=== PATIENT | male | born 1935 | race Caucasian/White ===

== ENCOUNTER → 2016-05-17 | Outpatient (CLI) | payer MEDICARE ==
[~2016-05-17] MED LIST: LEVO.125 PO; NEXI40CA PO
[2016-05-17 09:28] LABS: HEMATOCRIT 40.8 % (39.0-51.0); MEAN CELL VOLUME 83.6 FL (80.0-100.0); MEAN CORPUSCULAR HEMOGLOBIN 27.9 PG (27.0-34.0); MEAN CORPUSCULAR HGB CONC 33.4 % (32.0-36.0); PLATELET COUNT 239 TH/MM3 (150-450); RED BLOOD COUNT 4.87 MIL/MM3 (4.50-5.90); RED CELL DISTRIBUTION WIDTH 14.1 % (11.6-17.2); REVIEW FLAG FINAL; WHITE BLOOD COUNT 4.8 TH/MM3 (4.0-11.0)
[2016-05-17 11:36] LABS: ALKALINE PHOSPHATASE 144 U/L (45-117); ALT (GPT) 38 U/L (12-78); ANION GAP 11 MEQ/L (5-15); AST (GOT) 32 U/L (15-37); BICARBONATE 22.7 MEQ/L (21.0-32.0); BLOOD UREA NITROGEN 23 MG/DL (7-18); CHLORIDE 107 MEQ/L (98-107); FREE T4 0.95 NG/DL (0.76-1.46); GLOMERULAR FILTRATION RATE 51 ML/MIN (>89); GLUCOSE,FASTING 86 MG/DL (74-99); HDL CHOLESTEROL 61.2 MG/DL (40.0-60.0); LDL CHOLESTEROL 54 MG/DL (0-99); LDL CHOLESTEROL DIRECT 73 MG/DL (0-99); POTASSIUM 4.1 MEQ/L (3.5-5.1); SODIUM (NA) 141 MEQ/L (136-145); TOTAL BILIRUBIN ADULT 1.5 MG/DL (0.2-1.0)
== END ==
LOC: PLAB 07:11
PROVIDERS: ATTEND Family Medicine
DX: K21.9 Gastro-esophageal reflux disease without esophagitis (principal); I10 Essential (primary) hypertension; E03.8 Other specified hypothyroidism
CPT/HCPCS: 36415; 80053; 80061; 83721; 84439; 84443; 85027

== ENCOUNTER → 2016-08-10 | Outpatient (CLI) | payer MEDICARE ==
[2016-08-10 13:26] LABS: HEMATOCRIT 38.8 % (39.0-51.0); MEAN CELL VOLUME 84.1 FL (80.0-100.0); MEAN CORPUSCULAR HEMOGLOBIN 28.2 PG (27.0-34.0); MEAN CORPUSCULAR HGB CONC 33.6 % (32.0-36.0); PLATELET COUNT 208 TH/MM3 (150-450); RED BLOOD COUNT 4.62 MIL/MM3 (4.50-5.90); RED CELL DISTRIBUTION WIDTH 14.4 % (11.6-17.2); REVIEW FLAG FINAL; WHITE BLOOD COUNT 4.1 TH/MM3 (4.0-11.0)
[2016-08-10 13:49] LABS: ANION GAP 5 MEQ/L (5-15); AST (GOT) 41 U/L (15-37); BICARBONATE 28.3 MEQ/L (21.0-32.0); BLOOD UREA NITROGEN 28 MG/DL (7-18); CHLORIDE 110 MEQ/L (98-107); GLOMERULAR FILTRATION RATE 58 ML/MIN (>89); GLUCOSE,FASTING 80 MG/DL (74-99); SODIUM (NA) 143 MEQ/L (136-145)
[2016-08-10 14:18] LABS: ALKALINE PHOSPHATASE 147 U/L (45-117); ALT (GPT) 62 U/L (12-78); FREE T4 0.97 NG/DL (0.76-1.46); HDL CHOLESTEROL 49.9 MG/DL (40.0-60.0); LDL CHOLESTEROL 51 MG/DL (0-99); LDL CHOLESTEROL DIRECT 69 MG/DL (0-99)
== END ==
LOC: PLAB 08:33
PROVIDERS: ATTEND Family Medicine
DX: E78.2 Mixed hyperlipidemia (principal); E03.8 Other specified hypothyroidism; I67.9 Cerebrovascular disease, unspecified
CPT/HCPCS: 36415; 80053; 80061; 82607; 83721; 84439; 84443; 85027

== ENCOUNTER → 2016-11-09 | Outpatient (CLI) | payer MEDICARE ==
[2016-11-09 09:15] LABS: HEMATOCRIT 39.9 % (39.0-51.0); MEAN CELL VOLUME 85.1 FL (80.0-100.0); MEAN CORPUSCULAR HGB CONC 34.1 % (32.0-36.0); PLATELET COUNT 207 TH/MM3 (150-450); RED BLOOD COUNT 4.69 MIL/MM3 (4.50-5.90); RED CELL DISTRIBUTION WIDTH 14.5 % (11.6-17.2); REVIEW FLAG FINAL; WHITE BLOOD COUNT 4.6 TH/MM3 (4.0-11.0)
[2016-11-09 09:49] LABS: CHLORIDE 108 MEQ/L (98-107); POTASSIUM 4.2 MEQ/L (3.5-5.1); SODIUM (NA) 141 MEQ/L (136-145)
[2016-11-09 09:51] LABS: AST (GOT) 33 U/L (15-37); BLOOD UREA NITROGEN 25 MG/DL (7-18); GLOMERULAR FILTRATION RATE 56 ML/MIN (>89); GLUCOSE,FASTING 91 MG/DL (74-99)
[2016-11-09 10:14] LABS: ALKALINE PHOSPHATASE 154 U/L (45-117); ALT (GPT) 47 U/L (12-78); ANION GAP 7 MEQ/L (5-15); BICARBONATE 26.5 MEQ/L (21.0-32.0); FREE T4 0.99 NG/DL (0.76-1.46); HDL CHOLESTEROL 53.5 MG/DL (40.0-60.0); LDL CHOLESTEROL 37 MG/DL (0-99); LDL CHOLESTEROL DIRECT 45 MG/DL (0-99); TOTAL BILIRUBIN ADULT 1.5 MG/DL (0.2-1.0)
== END ==
LOC: PLAB 07:07
PROVIDERS: ATTEND Family Medicine
DX: E78.2 Mixed hyperlipidemia (principal); E03.8 Other specified hypothyroidism; E53.8 Deficiency of other specified B group vitamins; I67.9 Cerebrovascular disease, unspecified
CPT/HCPCS: 36415; 80053; 80061; 82607; 83721; 84439; 84443; 85027

== ENCOUNTER 2017-01-09 06:19 | Inpatient (IN) | payer MEDICARE ==
[~2017-01-09] VITALS: Ht 182.9 cm; Wt 98.0 kg
[2017-01-09] VITALS (9 sets, daily range): BP systolic 112–146; BP diastolic 62–82; PULSE 58–85; RESP 16–20; TEMP 97.9–98.4; O2SAT 96–98
[2017-01-09] MEDS ORDERED: ASPIRIN 81 MG CHEW TAB PO ONE (06:45)
[2017-01-09] MEDS ORDERED: SODIUM CHLORIDE 0.9% FLUSH 10 ML FLUSH IVF PRN (06:45)
[2017-01-09] MEDS ORDERED: SODIUM CHLORID 0.9% 500 ML INJ 500 ML IV ONE (06:45)
--- NOTE | 2017-01-09 06:49 | PD ---
HPI Chief Complaint: Dizziness Time Seen by Provider: 06:34 Travel History International Travel<30 days: No Contact w/Intl Traveler<30days: No Traveled to known affect area: No History of Present Illness HPI Thin 81-year-old man who presents to the emergency department complaining of chest pain, diaphoresis, and right sided numbness. States he was feeling well when he went to bed last night he woke up with dull pain and pressure in his chest. He also had diaphoresis and sweating. All with this he had numbness in the right arm. He still has some numbness in the right arm and right face now. No weakness. Chest pressure is abated. He states he had similar symptoms about a year or so ago but he did not see a doctor at that time. History Past Medical History Narrative Medical Hypothyroidism. Social History Alcohol Use: No Tobacco Use: No Allergies-Medications (Allergen,Severity, Reaction): Coded Allergies: No Known Allergies (Verified , 01/09/17) Reported Meds & Prescriptions Reported Meds & Active Scripts Active Reported Lipitor (Atorvastatin Calcium) 20 Mg Tab 20 Mg PO HS Aspirin 81 Mg Chew 162 Mg CHEW DAILY Zantac (Ranitidine HCl) 300 Mg Tab 300 Mg PO DAILY Levothyroxine (Levothyroxine Sodium) 125 Mcg Tab 125 Mcg PO DAILY Review of Systems Except as stated in HPI: all other systems reviewed are Neg Physical Exam Narrative GENERAL: Well-appearing 81-year-old, no acute distress. SKIN: Focused skin assessment warm/dry. HEAD: Atraumatic. Normocephalic. EYES: Pupils equal and round. No scleral icterus. No injection or drainage. ENT: No nasal bleeding or discharge. Mucous membranes pink and moist. NECK: Trachea midline. No JVD. CARDIOVASCULAR: Regular rate and rhythm. No murmur appreciated. RESPIRATORY: No accessory muscle use. Clear to auscultation. Breath sounds equal bilaterally. GASTROINTESTINAL: Abdomen soft, non-tender, nondistended. Hepatic and splenic margins not palpable. MUSCULOSKELETAL: No obvious deformities. No clubbing. No cyanosis. No edema. NEUROLOGICAL: Awake and alert. No obvious cranial nerve deficits. Motor grossly within normal limits. Normal speech. PSYCHIATRIC: Appropriate mood and affect; insight and judgment normal. Data Data Last Documented VS Vital Signs Date Time Temp Pulse Resp B/P (MAP) Pulse Ox O2 Delivery O2 Flow Rate FiO2 01/09/17 06:42 96 Room Air 01/09/17 06:42 72 18 132/82 (99) 01/09/17 06:21 97.9 Orders Orders Electrocardiogram (01/09/17 06:40) Ckmb (Isoenzyme) Profile (01/09/17 06:40) Complete Blood Count With Diff (01/09/17 06:40) Comprehensive Metabolic Panel (01/09/17 06:40) Magnesium (Mg) (01/09/17 06:40) Prothrombin Time / Inr (Pt) (01/09/17 06:40) Act Partial Throm Time (Ptt) (01/09/17 06:40) Troponin I (01/09/17 06:40) Chest, Single Ap (01/09/17 06:40) Ecg Monitoring (01/09/17 06:40) Bilateral Bp Monitoring (01/09/17 06:40) Iv Access Insert/Monitor (01/09/17 06:40) Oximetry (01/09/17 06:40) Oxygen Administration (01/09/17 06:40) Aspirin Chew (Aspirin Chew) (01/09/17 06:45) Sodium Chloride 0.9% Flush (Ns Flush) (01/09/17 06:45) Sodium Chlorid 0.9% 500 Ml Inj (Ns 500 M (01/09/17 06:45) Ct Brain W/O Iv Contrast(Rout) (01/09/17 ) Labs Laboratory Tests Test 01/09/17 06:45 White Blood Count 5.1 TH/MM3 Red Blood Count 4.88 MIL/MM3 Hemoglobin 13.9 GM/DL Hematocrit 42.0 % Mean Corpuscular Volume 86.2 FL Mean Corpuscular Hemoglobin 28.5 PG Mean Corpuscular Hemoglobin Concent 33.1 % Red Cell Distribution Width 14.3 % Platelet Count 214 TH/MM3 Mean Platelet Volume 8.7 FL Neutrophils (%) (Auto) 54.8 % Lymphocytes (%) (Auto) 33.4 % Monocytes (%) (Auto) 9.1 % Eosinophils (%) (Auto) 2.2 % Basophils (%) (Auto) 0.5 % Neutrophils # (Auto) 2.8 TH/MM3 Lymphocytes # (Auto) 1.7 TH/MM3 Monocytes # (Auto) 0.5 TH/MM3 Eosinophils # (Auto) 0.1 TH/MM3 Basophils # (Auto) 0.0 TH/MM3 CBC Comment DIFF FINAL Differential Comment MDM Medical Decision Making Medical Screen Exam Complete: Yes Emergency Medical Condition: Yes Interpretation(s) My review of EKG: Sinus rhythm at a rate of 68, leftward axis, normal intervals , no acute ischemia. Differential Diagnosis ACS, ischemia, bleed, stroke, anxiety, other Narrative Course Medical decision making INITIAL: 81-year-old man presents to the emergency department complaining of chest pain, diaphoresis, right-sided illness. Looks well. Neurologic exam is completely unremarkable with exception of some subjective sensory changes right V2 and right arm. Doubt neurologic cause. Suspicious for myocardial ischemia. Check labs, EKG, labs, reassess. Chavez Barrera MD Jan 09, 2017 06:49
[2017-01-09] MEDS ORDERED: ZANT300T PO (06:53)
[2017-01-09] MEDS ORDERED: LEVO125T4 PO (06:53)
[2017-01-09] MEDS ORDERED: ASPI81CH CHEW (06:53)
[2017-01-09] MEDS ORDERED: LIPI20TA PO (06:53)
[2017-01-09 06:56] LABS: AUTOMATED NEUTROPHIL # 2.8 TH/MM3 (1.8-7.7); BASOPHIL % 0.5 % (0.0-2.0); EOSINOPHIL # 0.1 TH/MM3 (0-0.4); EOSINOPHIL % 2.2 % (0.0-4.0); HEMO FLAGS DIFF FINAL; LYMPH % 33.4 % (9.0-44.0); LYMPHOCYTE # 1.7 TH/MM3 (1.0-4.8); MEAN CELL VOLUME 86.2 FL (80.0-100.0); MEAN CORPUSCULAR HEMOGLOBIN 28.5 PG (27.0-34.0); MEAN CORPUSCULAR HGB CONC 33.1 % (32.0-36.0); MONO % 9.1 % (0.0-8.0); NEUT % 54.8 % (16.0-70.0); PLATELET COUNT 214 TH/MM3 (150-450); RED BLOOD COUNT 4.88 MIL/MM3 (4.50-5.90); RED CELL DISTRIBUTION WIDTH 14.3 % (11.6-17.2); WHITE BLOOD COUNT 5.1 TH/MM3 (4.0-11.0)
--- NOTE | 2017-01-09 07:00 | RADRPT ---
EXAM DATE/TIME: 01/09/2017 06:50 [facility] COMPARISON: No previous studies available for comparison. INDICATIONS : Dizziness and right arm numbness. RADIATION DOSE: 37.05 CTDIvol (mGy) MEDICAL HISTORY : Gastroesophageal reflux disease. Carcinoma, prostate. SURGICAL HISTORY : Prostatectomy. Thyroid surgery. ENCOUNTER: Initial ACUITY: 1 day PAIN SCALE: 0/10 LOCATION: cranial TECHNIQUE: Multiple contiguous axial images were obtained of the head. Using automated exposure control and adj ustment of the mA and/or kV according to patient size, radiation dose was kept as low as reasonably a chievable to obtain optimal diagnostic quality images. DIC[facility]. FINDINGS: CEREBRUM: The ventricles are normal for age. Punctate spontaneously dense area in the right condon radiata is o vertly benign. Punctate old lacunar type infarct in the left thalamus.. No extra-axial fluid collect ions are seen. POSTERIOR FOSSA: The cerebellum and brainstem are intact. The 4th ventricle is midline. The cerebellopontine angle i s unremarkable. EXTRACRANIAL: The visualized portion of the orbits is intact. Expansile soft tissue lesion in the right maxillary a ntrum calcification. Mild mucoperiosteal thickening in the left sphenoid sinus SKULL: The calvaria is intact. No evidence of skull fracture. CONCLUSION: 1. 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 Benign-appearing sub-centim eters calcification in the right condon radiata. 2. Expansile lesion in the right maxillary antrum with calcification. While this may represent chroni c sinusitis with a fungal component, a mass lesion cannot be excluded. Outpatient MRI with contrast c ould be performed for further characterization. Kameron Lu MD on January 09, 2017 at 6:54 Board Certified Radiologist. This report was verified electronically.
--- NOTE | 2017-01-09 07:02 | RADRPT ---
EXAM DATE/TIME: 01/09/2017 06:44 [facility] COMPARISON: No previous studies available for comparison. INDICATIONS : Chest pain. MEDICAL HISTORY : None. SURGICAL HISTORY : None. ENCOUNTER: Initial ACUITY: 1 day PAIN SCORE: 0/10 LOCATION: Bilateral chest FINDINGS: The heart size is normal. There is minimal suspected linear atelectasis at the medial left lung base. Right lung is clear. No effusion is seen. CONCLUSION: Suspected minimal atelectasis. Tae Lutz MD on January 09, 2017 at 6:58 Board Certified Radiologist. This report was verified electronically.
[2017-01-09 07:13] LABS: ALT (GPT) 39 U/L (12-78); ANION GAP 5 MEQ/L (5-15); AST (GOT) 26 U/L (15-37); BICARBONATE 27.7 MEQ/L (21.0-32.0); BLOOD UREA NITROGEN 24 MG/DL (7-18); CHLORIDE 106 MEQ/L (98-107); GLOMERULAR FILTRATION RATE 57 ML/MIN (>89); MAGNESIUM 2.3 MG/DL (1.5-2.5); POTASSIUM 3.9 MEQ/L (3.5-5.1); SODIUM (NA) 139 MEQ/L (136-145)
[2017-01-09 07:17] LABS: ALKALINE PHOSPHATASE 146 U/L (45-117); CREATINE KINASE 101 U/L (39-308); TOTAL BILIRUBIN ADULT 1.7 MG/DL (0.2-1.0)
[2017-01-09 07:26] LABS: APTT (PATIENT) 25.3 SEC (24.3-30.1); PROTHROMBIN TIME - PATIENT 10.5 SEC (9.8-11.6)
[2017-01-09 07:29] LABS: CKMB 2.3 NG/ML (0.5-3.6)
[2017-01-09] MEDS ORDERED: GADODIAMIDE PF 287 MG/ML 20 ML VIAL (for RAD MRI) IVCONTRAST ONE ×2 (08:28)
[2017-01-09] MEDS ORDERED: SODIUM CHLORIDE 0.9% FLUSH 10 ML FLUSH IV FLUSH PRN (08:45)
[2017-01-09] MEDS ORDERED: SENNOSIDES 8.6 MG TAB PO PRN (08:45)
[2017-01-09] MEDS ORDERED: MAGNESIUM HYDROXIDE SUSP 30 ML CUP PO PRN (08:45)
[2017-01-09] MEDS ORDERED: NALOXONE HCL 0.4 MG/ML AMP IV PUSH PRN (08:45)
[2017-01-09] MEDS ORDERED: LACTULOSE SYRUP 20 GM/30 ML CUP PO PRN (08:45)
[2017-01-09] MEDS ORDERED: BISACODYL 10 MG SUPP RECTAL PRN (08:45)
[2017-01-09] MEDS: SODIUM CHLOR 0.9% 1000 ML INJ 1,000 ML IV SCH ×2 (08:54→20:07)
[2017-01-09] MEDS: ENOXAPARIN SODIUM 40 MG/0.4 ML SYRINGE SQ SCH (08:55)
[2017-01-09] MEDS ORDERED: SODIUM CHLORIDE 0.9% FLUSH 10 ML FLUSH IV FLUSH SCH (09:00)
--- NOTE | 2017-01-09 09:37 | HHI.HP ---
HPI Service [facility] Primary Care Physician Marlon Crowley MD Admission Diagnosis chest pain, dizziness, right facial numbness and right arm numbness. Diagnoses: Chief Complaint: Right-sided numbness and weakness Travel History International Travel<30 Days: No Contact w/Intl Traveler <30 Da: No Traveled to Known Affected Are: No History of Present Illness Written by Gary Milian, acting as scribe for Dr. Jones on 01/09/17 at 09:37. 81-year-old male with past medical history of CVA, HLD, hypothyroidism, GERD who presented for right-sided neuro symptoms. The patient states that on Tuesday began having dizziness and the room was spinning lasted approximately 15 minutes. Since that time the patient has had right arm and leg numbness and weakness. Since then he's been having intermittent sharp headache located on the top of his head with no radiation. He denies any vision changes or swallowing difficulties. The patient states that since Tuesday he's been having episodes of chest pain. He locates the pain midsternally with no radiation. He describes the pain as sharp and lasting for 2 or 3 seconds at a time. He denies any prior history of heart disease. He did have a stroke in August 2015 with no residual deficit. The patient states that past few weeks he's been having night sweats which wake him up and make it difficult to sleep; he does snore at night. He denies any nausea, vomiting, fever, chills, dysuria, pain, diarrhea, constipation. Review of Systems Except as stated in HPI: all other systems reviewed are Neg Past Family Social History Past Medical History Hyperlipidemia CTA GERD Hypothyroidism Past Surgical History Back surgery Hernia surgery 2 Neurosurgery Thyroid removal Prostate cancer removal Reported Medications Reported Meds & Active Scripts Active Reported Lipitor (Atorvastatin Calcium) 10 Mg Tab 10 Mg PO HS Aspirin 81 Mg Chew 162 Mg CHEW DAILY Zantac (Ranitidine HCl) 300 Mg Tab 300 Mg PO DAILY Levothyroxine (Levothyroxine Sodium) 125 Mcg Tab 125 Mcg PO DAILY Allergies: Coded Allergies: No Known Allergies (Verified , 01/09/17) Active Ordered Medications Current Medications Medications (Trade) Dose Ordered Sig/Naomi Route Start Time Stop Time Status Last Admin Sodium Chloride 1,000 ml @ 125 mls/hr Q8H IV 01/09/17 08:00 01/09/17 08:54 (NS Flush) 2 ml UNSCH PRN IV FLUSH 01/09/17 08:45 (NS Flush) 2 ml BID IV FLUSH 01/09/17 09:00 (Lovenox Inj) 40 mg Q24H SQ 01/09/17 09:00 01/09/17 08:55 (Narcan Inj) 0.4 mg UNSCH PRN IV PUSH 01/09/17 08:45 (Milk Of Magnesia Liq) 30 ml Q12H PRN PO 01/09/17 08:45 (Senokot) 17.2 mg Q12H PRN PO 01/09/17 08:45 (Dulcolax Supp) 10 mg DAILY PRN RECTAL 01/09/17 08:45 (Lactulose Liq) 30 ml DAILY PRN PO 01/09/17 08:45 Family History Denies any family history of heart disease, diabetes, or stroke Social History Denies alcohol, tobacco, or drug use Physical Exam Vital Signs Vital Signs Date Time Temp Pulse Resp B/P (MAP) Pulse Ox O2 Delivery O2 Flow Rate FiO2 01/09/17 08:59 64 18 113/69 (84) 98 Room Air 01/09/17 06:42 96 Room Air 01/09/17 06:42 72 18 132/82 (99) 97 Room Air 01/09/17 06:21 97.9 75 16 146/70 (95) 96 Room Air Physical Exam GENERAL: Well-developed well-nourished. In no acute distress. SKIN: Warm and dry. No lesions noted. HEENT: Normocephalic. Pupils equal and round, and reactive to light. EOMs intact. Mucous membranes pink and moist. No maxillary or sinus TTP CARDIOVASCULAR: Regular rate and rhythm. No murmur appreciated. No chest wall TTP. RESPIRATORY: No accessory muscle use. Clear to auscultation. Breath sounds equal bilaterally. GASTROINTESTINAL: Abdomen soft, non-tender, nondistended. Bowel sounds x4. MUSCULOSKELETAL: Mild right calf swelling, chronic per patient, negative Homans laterally. No clubbing or cyanosis. No edema. NEUROLOGICAL: Awake and alert. Normal speech. Strength 5/5. Slight pronator drift on the right. Subjectively decreased sensation in the right lower extremity, otherwise sensation grossly intact. No facial asymmetry or tongue deviation. PSYCHIATRIC: Appropriate mood and affect; insight and judgment normal. Laboratory Laboratory Tests Test 01/09/17 06:45 White Blood Count 5.1 Red Blood Count 4.88 Hemoglobin 13.9 Hematocrit 42.0 Mean Corpuscular Volume 86.2 Mean Corpuscular Hemoglobin 28.5 Mean Corpuscular Hemoglobin Concent 33.1 Red Cell Distribution Width 14.3 Platelet Count 214 Mean Platelet Volume 8.7 Neutrophils (%) (Auto) 54.8 Lymphocytes (%) (Auto) 33.4 Monocytes (%) (Auto) 9.1 Eosinophils (%) (Auto) 2.2 Basophils (%) (Auto) 0.5 Neutrophils # (Auto) 2.8 Lymphocytes # (Auto) 1.7 Monocytes # (Auto) 0.5 Eosinophils # (Auto) 0.1 Basophils # (Auto) 0.0 CBC Comment DIFF FINAL Differential Comment Prothrombin Time 10.5 Prothromb Time International Ratio 1.0 Activated Partial Thromboplast Time 25.3 Blood Urea Nitrogen 24 Creatinine 1.22 Random Glucose 98 Total Protein 7.3 Albumin 3.8 Calcium Level 8.7 Magnesium Level 2.3 Alkaline Phosphatase 146 Aspartate Amino Transf (AST/SGOT) 26 Alanine Aminotransferase (ALT/SGPT) 39 Total Bilirubin 1.7 Sodium Level 139 Potassium Level 3.9 Chloride Level 106 Carbon Dioxide Level 27.7 Anion Gap 5 Estimat Glomerular Filtration Rate 57 Total Creatine Kinase 101 Creatine Kinase MB 2.3 Troponin I LESS THAN 0.02 Result Diagram: 01/09/17 0645 01/09/1745 Imaging Last Impressions Chest X-Ray 01/09/17 0640 Signed Impressions: Service Date/Time: Monday, January 09, 2017 06:44 - CONCLUSION: Suspected minimal atelectasis. Tae Lutz MD Head CT 01/09/17 0000 Signed Impressions: Service Date/Time: Monday, January 09, 2017 06:50 - CONCLUSION: 1. 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 Benign- appearing sub-centimeters calcification in the right condon radiata. 2. Expansile lesion in the right maxillary antrum with calcification. While this may represent chronic sinusitis with a fungal component, a mass lesion cannot be excluded. Outpatient MRI with contrast could be performed for further characterization. Kameron uL MD Captabitha VTE Risk Assessment Caprini VTE Risk Assessment: Mod/High Risk (score >= 2) Caprini Risk Assessment Model Point Value = 1 Point Value = 2 Point Value = 3 Point Value = 5 Age 41-60 Minor surgery BMI > 25 kg/m2 Swollen legs Varicose veins or History of unexplained or recurrent spontaneous Oral contraceptives or hormone replacement Sepsis (< 1 month) Serious lung disease, including pneumonia (< 1 month) Abnormal pulmonary function Acute myocardial infarction Congestive heart failure (< 1 month) History of inflammatory bowel disease Medical patient at bed rest Age 61-74 Arthroscopic surgery Major open surgery (> 45 min) Laparoscopic surgery (> 45 min) Malignancy Confined to bed (> 72 hours) Immobilizing plaster cast Central venous access Age >= 75 History of VTE Family history of VTE Factor V Leiden Prothrombin [id number] Lupus anticoagulant Anticardiolipin antibodies Elevated serum homocysteine Heparin-induced thrombocytopenia Other congenital or acquired thrombophilia Stroke (< 1 month) Elective arthroplasty Hip, pelvis, or leg fracture Acute spinal cord injury (< 1 month) Prophylaxis Regimen Total Risk Factor Score Risk Level Prophylaxis Regimen 0-1 Low Early ambulation 2 Moderate Order ONE of the following: *Sequential Compression Device (SCD) *Heparin 5000 units SQ BID 3-4 Higher Order ONE of the following medications: *Heparin 5000 units SQ TID *Enoxaparin/Lovenox 40 mg SQ daily (WT < 150 kg, CrCl > 30 mL/min) *Enoxaparin/Lovenox 30 mg SQ daily (WT < 150 kg, CrCl > 10-29 mL/min) *Enoxaparin/Lovenox 30 mg SQ BID (WT < 150 kg, CrCl > 30 mL/min) AND/OR *Sequential Compression Device (SCD) 5 or more Highest Order ONE of the following medications: *Heparin 5000 units SQ TID (Preferred with Epidurals) *Enoxaparin/Lovenox 40 mg SQ daily (WT < 150 kg, CrCl > 30 mL/min) *Enoxaparin/Lovenox 30 mg SQ daily (WT < 150 kg, CrCl > 10-29 mL/min) *Enoxaparin/Lovenox 30 mg SQ BID (WT < 150 kg, CrCl > 30 mL/min) AND *Sequential Compression Device (SCD) Assessment and Plan Assessment and Plan 81-year-old male with past medical history of CVA, HLD, hypothyroidism, GERD who presented for right-sided neuro symptoms Right-sided neuro symptoms 2 days: Possible CVA. Reviewed: Head CT shows chronic changes with an old lacunar infarct in the left thalamus; lesion in the right maxillary antrum. -Stroke workup; neuro checks, swallow eval, Accu checks, telemetry monitoring, stroke scale -Check brain MRI, MRA, carotid ultrasound, echocardiogram -Consult neurology -Continue aspirin and statin -PT/OT -IVF Atypical chest pain: Reviewed: EKG with NSR, no ischemic changes. Initial troponin within normal limits. -Continue to trend cardiac enzymes and EKGs Sinus lesion: No sinus symptoms. Incidentally seen on head CT. -Check brain MRI with contrast Elevated bilirubin: Bilirubin 1.7. -Monitor LFTs and check bilirubin component GERD: Continue Zantac Hypothyroidism: Check TSH. Continue levothyroxine. DVT prophylaxis: Lovenox, SCDs Code Status Full code Discussed Condition With Patient with at bedside, ED staff This note was transcribed by [email or web address] [Gary Milian]. I, Dr. Nick Jones personally performed the history, physical exam, and medical decision making; and confirmed the accuracy of the information in the transcribed note. Authenticated by Dr. Nick Jones on 01/10/17 at 07:50. Gary Milian Jan 09, 2017 09:37 Nick Jones MD Jan 10, 2017 07:50
[2017-01-09] MEDS ORDERED: GLUCAGON 1 MG/ML VIAL OTHER PRN (09:45)
[2017-01-09] MEDS ORDERED: DEXTROSE 50% IN WATER 50 ML VIAL(D50) IV PUSH PRN (09:45)
[2017-01-09] MEDS ORDERED: SODIUM CHLORIDE 0.9% FLUSH 5 ML FLUSH IV FLUSH PRN (09:45)
[2017-01-09] MEDS ORDERED: ENALAPRILAT 1.25 MG/ML VIAL IV PRN (10:00)
--- NOTE | 2017-01-09 10:11 | PD ---
Physical Exam Date Seen by Provider: Jan 09, 2017 Time Seen by Provider: 07:00 Narrative The patient was signed out to me by Dr. Chavez Barrera at change of shift. Patient presented with complaints of chest pressure and tightness. Patient also represented with complaints of right facial numbness and tingling as well as right upper extremity numbness and tingling. CT scan of the brain was pending at the time of the discharge. Cardiac enzymes were within normal limits. CT brain shows no evidence of acute intracranial abnormality there is some calcification noted that appears to be chronic. There is also a mass noted in the right maxillary sinus that was suspicious for calcified fungal infection versus neoplasm. Given this, the patient will be admitted to the medicine service under observation. He'll need further studies including an MRI. He'll also need to be ruled out. The case was discussed with Dr. Jones who is agreeable. Data Data Last Documented VS Vital Signs Date Time Temp Pulse Resp B/P (MAP) Pulse Ox O2 Delivery O2 Flow Rate FiO2 01/09/17 06:42 96 Room Air 01/09/17 06:42 72 18 132/82 (99) 01/09/17 06:21 97.9 Orders Orders Electrocardiogram (01/09/17 06:40) Ckmb (Isoenzyme) Profile (01/09/17 06:40) Complete Blood Count With Diff (01/09/17 06:40) Comprehensive Metabolic Panel (01/09/17 06:40) Magnesium (Mg) (01/09/17 06:40) Prothrombin Time / Inr (Pt) (01/09/17 06:40) Act Partial Throm Time (Ptt) (01/09/17 06:40) Troponin I (01/09/17 06:40) Chest, Single Ap (01/09/17 06:40) Ecg Monitoring (01/09/17 06:40) Bilateral Bp Monitoring (01/09/17 06:40) Iv Access Insert/Monitor (01/09/17 06:40) Oximetry (01/09/17 06:40) Oxygen Administration (01/09/17 06:40) Aspirin Chew (Aspirin Chew) (01/09/17 06:45) Sodium Chloride 0.9% Flush (Ns Flush) (01/09/17 06:45) Sodium Chlorid 0.9% 500 Ml Inj (Ns 500 M (01/09/17 06:45) Ct Brain W/O Iv Contrast(Rout) (01/09/17 ) CKMB (01/09/17 06:45) CKMB% (01/09/17 06:45) Sodium Chlor 0.9% 1000 Ml Inj (Ns 1000 M (01/09/17 08:00) Bilirubin Components (01/09/17 08:13) Admit Order (Ed Use Only) (01/09/17 08:25) Labs Laboratory Tests Test 01/09/17 06:45 White Blood Count 5.1 TH/MM3 Red Blood Count 4.88 MIL/MM3 Hemoglobin 13.9 GM/DL Hematocrit 42.0 % Mean Corpuscular Volume 86.2 FL Mean Corpuscular Hemoglobin 28.5 PG Mean Corpuscular Hemoglobin Concent 33.1 % Red Cell Distribution Width 14.3 % Platelet Count 214 TH/MM3 Mean Platelet Volume 8.7 FL Neutrophils (%) (Auto) 54.8 % Lymphocytes (%) (Auto) 33.4 % Monocytes (%) (Auto) 9.1 % Eosinophils (%) (Auto) 2.2 % Basophils (%) (Auto) 0.5 % Neutrophils # (Auto) 2.8 TH/MM3 Lymphocytes # (Auto) 1.7 TH/MM3 Monocytes # (Auto) 0.5 TH/MM3 Eosinophils # (Auto) 0.1 TH/MM3 Basophils # (Auto) 0.0 TH/MM3 CBC Comment DIFF FINAL Differential Comment Prothrombin Time 10.5 SEC Prothromb Time International Ratio 1.0 RATIO Activated Partial Thromboplast Time 25.3 SEC Blood Urea Nitrogen 24 MG/DL Creatinine 1.22 MG/DL Random Glucose 98 MG/DL Total Protein 7.3 GM/DL Albumin 3.8 GM/DL Calcium Level 8.7 MG/DL Magnesium Level 2.3 MG/DL Alkaline Phosphatase 146 U/L Aspartate Amino Transf (AST/SGOT) 26 U/L Alanine Aminotransferase (ALT/SGPT) 39 U/L Total Bilirubin 1.7 MG/DL Sodium Level 139 MEQ/L Potassium Level 3.9 MEQ/L Chloride Level 106 MEQ/L Carbon Dioxide Level 27.7 MEQ/L Anion Gap 5 MEQ/L Estimat Glomerular Filtration Rate 57 ML/MIN Total Creatine Kinase 101 U/L Creatine Kinase MB 2.3 NG/ML Troponin I LESS THAN 0.02 NG/ML [facility] Medical Record Reviewed: Yes Supervised Visit with YAHAIRA: No Narrative Course Patient presents with chest pain chest pressure and right sided facial and arm numbness and tingling. Treatment under observation for further evaluation. Diagnosis Primary Impression: Chest pain Additional Impressions: Numbness and tingling of right face Numbness and tingling of right upper extremity right maxillary sinus mass Admitting Information Admitting Physician Requests: Observation Rafat Dailey MD Jan 09, 2017 10:11
--- NOTE | 2017-01-09 11:46 | RADRPT ---
EXAM DATE/TIME: 01/09/2017 10:41 [facility] COMPARISON: No previous studies available for comparison. INDICATIONS : Dizziness. Abnormal CT. CONTRAST: 20 cc Omniscan (gadodiamide) IV MEDICAL HISTORY : Carcinoma, prostate. SURGICAL HISTORY : Prostatectomy. Discectomy, lumbar. Inguinal hernia repair. ENCOUNTER: Initial ACUITY: 1 day PAIN SCORE: 0/10 LOCATION: cranial TECHNIQUE: Multiplanar, multisequence MRI of the brain was performed both prior to and following the administrat ion of paramagnetic contrast. FINDINGS: CEREBRUM: The ventricles are normal for age. There are old lacunar infarction at the anterior left basal gangl ia, left thalamus and in the left caudate head and anterior body region. There is small area of encep halomalacia seen at the inferior mid right temporal lobe. No evidence of midline shift, mass lesion, hemorrhage or acute infarction. No extraaxial fluid collections are seen. The pituitary gland and baez prasellar cistern are normal in configuration. WHITE MATTER: No significant signal abnormalities are seen in the white matter. POSTERIOR FOSSA: The cerebellum and brainstem are intact. The 4th ventricle is midline. The cerebellopontine angle is unremarkable. The cerebellar tonsils are normal in position. DIFFUSION IMAGING: No focal areas of restricted diffusion are seen. No evidence of acute infarction. EXTRACRANIAL: The visualized portions of the orbits are unremarkable. There is opacification of the right maxillary sinus and left sphenoid sinus. POST-CONTRAST: No abnormal areas of parenchymal or dural enhancement. No evidence of blood-brain barrier breakdown. CONCLUSION: 1. No acute intracranial abnormality seen. 2. Old lacunar infarcts in the left and a suspected smaller than subluxation at the inferior right te mporal lobe. 3. Opacification of the right maxillary sinus and left sphenoid sinus. Tae Lutz MD on January 09, 2017 at 11:35 Board Certified Radiologist. This report was verified electronically.
--- NOTE | 2017-01-09 11:47 | RADRPT ---
EXAM DATE/TIME: 01/09/2017 10:41 [facility] COMPARISON: No previous studies available for comparison. INDICATIONS : Dizziness. Abnormal CT. MEDICAL HISTORY : Carcinoma, prostate. SURGICAL HISTORY : Prostatectomy. Inguinal hernia repair. ENCOUNTER: Initial ACUITY: 1 day PAIN SCORE: 0/10 LOCATION: cranial Please note a normal MRA of the brain does not entirely exclude the possibility of a small aneurysm, nor the possibility of distal intracranial vessel disease. TECHNIQUE: 3D time of flight MRA was performed. Source images, multiplanar STS MIP, and 3D volume MIP reconstru ctions were reviewed. FINDINGS: There is excellent visualization of the major intracranial arteries out to the second-order branch ve ssels. There is no evidence for aneurysm, vessel truncation or stenosis, and no evidence for vascula r malformation. CONCLUSION: Normal examination. Tae Lutz MD on January 09, 2017 at 11:45 Board Certified Radiologist. This report was verified electronically.
[2017-01-09 11:52] LABS: INDIRECT BILIRUBIN 1.3 MG/DL (0.0-0.8)
[2017-01-09] MEDS: INSULIN ASPART SUPPLEMENTAL SCALE SQ SCH ×3 (12:00→20:52)
[2017-01-09] MEDS: ASPIRIN EC 325 MG TABEC PO SCH (12:20)
[2017-01-09] MEDS: FAMOTIDINE 20 MG TAB PO SCH ×2 (12:20→20:54)
[2017-01-09] MEDS: CLOPIDOGREL 75 MG TAB PO SCH (12:20)
--- NOTE | 2017-01-09 12:44 | EKG ---
Date Performed: 01/09/2017 Time Performed: 06:41:00 PTAGE: 81 years EKG: Sinus rhythm LEFT AXIS DEVIATION ABNORMAL ECG PREVIOUS TRACING : 05/09/2007 12.57 No significant change from previous tracing noted. DOCTOR: Marlon Green Interpretating Date/Time 01/09/2017 12:43:35
--- NOTE | 2017-01-09 13:06 | MB ---
cc: RIZWANA MARCIAL DATE OF CONSULTATION: 01/09/2017. HISTORY OF PRESENT ILLNESS: 81-year-old right-handed man with hypothyroidism, prostate cancer without metastasis who had a stroke in August of 2015 with right face, arm and leg numbness. He was put on two baby aspirin a day. He had an MRI at [facility] and he said showed a stroke. Then two days ago he had dizziness, some chest pain and right face, arm and leg numbness which has persisted. He came into the hospital. MEDICATIONS AT HOME: 1. Lipitor. 2. Two aspirin a day. 3. Zantac. 4. Thyroid medicine. ALLERGIES: NO KNOWN DRUG ALLERGIES. PAST MEDICAL HISTORY: 1. Gastroesophageal reflux disease (GERD). 2. Hyperlipidemia. 3. Thyroid removal. 4. Back surgery. REVIEW OF SYSTEMS: He denies any hypertension, diabetes, hypercholesterolemia, myocardial infarction, CABG, stents, angioplasty, atrial fibrillation, coumadin, renal, hepatic, or pulmonary disease, lupus, ulcer, seizure. SOCIAL HISTORY: Not a smoker or a drinker. He lives with his . FAMILY HISTORY: Positive for cancer. Positive for seizures in his grandmother. Positive for stroke. PHYSICAL EXAMINATION: VITAL SIGNS: On exam, sinus rhythm, afebrile, 75, 16, 146/70 to 113/69. NECK: There are no carotid bruits. HEART: Regular rhythm. I do not detect a murmur. NEUROLOGICAL EXAMINATION: Pupils are equal. Visual cummins are full. Extraocular movements intact without nystagmus. Face is symmetric with decreased sensation on the right compared to the left and lower face. Tongue was midline. No drift. Normal strength in upper and lower extremities bilaterally. DTRs are trace throughout. Toes are downgoing bilaterally. Pin prick was diminished in the right leg and arm and lower face compared to the left. He is not ataxic on [id number] or [id number]. He had normal gait. No apparent distress. LABS: CBC is normal. GIOVANI was negative in 2009. Basic metabolic profile here is normal. Total bilirubin 1.7. Liver function tests otherwise normal. CPK, troponin, albumin all normal. B12 was normal in October as were the thyroid studies. LDL cholesterol normal November 09, 2016. Coags normal. IMAGING STUDIES: Chest x-ray shows minimal atelectasis. MRA algaaciq of Brown shows he is left vertebral-dominant, otherwise appears intact. MRI of the brain. Official results are pending. No acute infarct is noted on the brain MRI on my review. There is a mass in the right maxillary region versus just sinusitis. Several small old cerebellar infarcts are noted, tiny, and some white matter changes lacunar-type infarctions noted on the left cerebrum but nothing acute. IMPRESSION: Clinically he had a small stroke but we do not see anything acutely on the diffusion image. I defer to the medical team if ear, nose and throat needs to see him for the maxillary abnormality, although it looks like it just might be fluid. On the CT, it looks more erosive. Will check an echocardiogram and Holter on him. I would start him on Plavix. Stop his aspirin in three days. Check an MRA of the neck Put him telemetry. Will be following him with you in the hospital. Besides the right-sided numbness, he actually looks fairly well neurologically. MD EULALIA Reynoso/AWA /11:19 AM /12:36 PM
--- NOTE | 2017-01-09 14:04 | RADRPT ---
EXAM DATE/TIME: 01/09/2017 13:25 [place] COMPARISON: No previous studies available for comparison. INDICATIONS : Dizziness. CONTRAST: 20 cc Omniscan (gadodiamide) IV MEDICAL HISTORY : SURGICAL HISTORY : ENCOUNTER: Initial ACUITY: 1 day PAIN SCORE: 0/10 LOCATION: neck Percent stenosis is calculated using the diameter of the stenotic region over the diameter of the nor mal distal internal carotid artery. TECHNIQUE: Bolus infused MRA of the extracranial circulation was performed using a neurovascular coil. Post pro cessing was performed including rotating subvolume maximum intensity projections of each carotid neo ry, rotating full volume maximum intensity projections of both carotid arteries, sagittal and coronal sliding thin slab reformations of each carotid artery, and left oblique sliding thin slab reformatio n through the aortic arch to include the origin of the arch branch vessels. FINDINGS: AORTIC ARCH: There is a three vessel origin of the great vessels from the aorta. No evidence of ostial narrowing. RIGHT CAROTID: The common carotid artery is intact. The carotid bulb has a normal configuration without ulceration or narrowing. The internal carotid artery lumen is smooth without stenosis. The external carotid ar reynaldo is intact. LEFT CAROTID: The common carotid artery is intact. The carotid bulb has a normal configuration without ulceration or narrowing. The internal carotid artery lumen is smooth without stenosis. The external carotid ar reynaldo is intact. VERTEBRALS: Slightly asymmetric vertebral arteries with dominant right vertebral artery. There is approximately 5 0-60% focal concentric stenosis of the proximal left vertebral artery. CONCLUSION: 1. No significant carotid flow-limiting stenosis. 2. Slightly asymmetric vertebral arteries with dominant right vertebral artery. Approximately 50-60% focal stenosis of the proximal left vertebral artery. Keagan Leyva MD on January 09, 2017 at 13:56 Board Certified Radiologist. This report was verified electronically.
--- NOTE | 2017-01-09 19:17 | EKG ---
Date Performed: 01/09/2017 Time Performed: 12:34:52 PTAGE: 81 years EKG: Sinus rhythm LEFT AXIS DEVIATION ABNORMAL ECG PREVIOUS TRACING : 01/09/2017 06.41 No significant change from previous tracing noted. DOCTOR: Marlon Green Interpretating Date/Time 01/09/2017 19:16:29
[2017-01-09] MEDS: ATORVASTATIN 20 MG TAB PO SCH (20:54)
[2017-01-09] MEDS: SODIUM CHLORIDE 0.9% FLUSH 5 ML FLUSH IV FLUSH SCH (20:55)
--- NOTE | 2017-01-09 21:45 | EKG ---
Date Performed: 01/09/2017 Time Performed: 18:29:53 PTAGE: 81 years EKG: Sinus rhythm BORDERLINE LEFT AXIS DEVIATION BORDERLINE ECG NO PREVIOUS TRACING DOCTOR: Marlon Green Interpretating Date/Time 01/09/2017 21:42:53
[2017-01-10] VITALS (8 sets, daily range): BP systolic 108–121; BP diastolic 69–86; PULSE 53–85; RESP 18–20; TEMP 97.8–98.4; O2SAT 95–97
[2017-01-10] MEDS: LEVOTHYROXINE SODIUM 125 MCG TAB PO SCH (05:46)
--- NOTE | 2017-01-10 06:52 | HHI.PR ---
Subjective Remarks sr Objective Vital Signs Date Time Temp Pulse Resp B/P (MAP) Pulse Ox O2 Delivery O2 Flow Rate FiO2 01/10/17 04:44 98.4 60 18 121/74 (90) 97 01/10/17 04:23 53 01/09/17 20:06 98.4 58 18 115/62 (79) 97 01/09/17 20:00 96 01/09/17 19:57 97.9 85 18 118/68 (85) 98 01/09/17 17:05 85 01/09/17 15:49 97.9 67 20 112/70 (84) 96 01/09/17 10:23 68 01/09/17 10:03 21 01/09/17 09:30 01/09/17 08:59 64 18 113/69 (84) 98 Room Air I/O 01/09/17 01/09/17 01/09/17 01/10/17 01/10/17 01/10/17 07:00 15:00 23:00 07:00 15:00 23:00 Intake Total 500 ml Balance 500 ml Intake IV Total 500 ml # Voids 1 Result Diagram: 01/09/17 0645 01/09/17 0645 Objective Remarks vff valentin sym nl speech / t/o 5/5 light touch nl says r numb gone Assessment and Plan Assessment and Plan imp ? tia mri and mrax2 ok i reviewed plavix if echo neg and holter on can dc home and dc asa in two days fu office 6 weeks Pio Doan MD Jan 10, 2017 06:51
[2017-01-10] MEDS: INSULIN ASPART SUPPLEMENTAL SCALE SQ SCH ×4 (08:25→21:00)
[2017-01-10] MEDS: SODIUM CHLORIDE 0.9% FLUSH 5 ML FLUSH IV FLUSH SCH ×2 (09:00→21:00)
[2017-01-10] MEDS ORDERED: ASPIRIN 81 MG CHEW TAB CHEW SCH (09:00)
[2017-01-10] MEDS: SODIUM CHLOR 0.9% 1000 ML INJ 1,000 ML IV SCH (09:27)
[2017-01-10 09:42] LABS: AUTOMATED NEUTROPHIL # 2.3 TH/MM3 (1.8-7.7); BASOPHIL % 0.4 % (0.0-2.0); EOSINOPHIL # 0.1 TH/MM3 (0-0.4); EOSINOPHIL % 1.7 % (0.0-4.0); HEMATOCRIT 39.8 % (39.0-51.0); HEMO FLAGS DIFF FINAL; LYMPH % 32.1 % (9.0-44.0); LYMPHOCYTE # 1.3 TH/MM3 (1.0-4.8); MEAN CELL VOLUME 86.3 FL (80.0-100.0); MEAN CORPUSCULAR HEMOGLOBIN 29.6 PG (27.0-34.0); MEAN CORPUSCULAR HGB CONC 34.2 % (32.0-36.0); MONO % 7.2 % (0.0-8.0); NEUT % 58.6 % (16.0-70.0); PLATELET COUNT 202 TH/MM3 (150-450); RED BLOOD COUNT 4.61 MIL/MM3 (4.50-5.90); RED CELL DISTRIBUTION WIDTH 14.3 % (11.6-17.2)
[2017-01-10 10:04] LABS: BICARBONATE 27.2 MEQ/L (21.0-32.0); POTASSIUM 4.2 MEQ/L (3.5-5.1)
[2017-01-10] MEDS: ENOXAPARIN SODIUM 40 MG/0.4 ML SYRINGE SQ SCH (10:05)
[2017-01-10] MEDS: CLOPIDOGREL 75 MG TAB PO SCH (10:06)
[2017-01-10] MEDS: FAMOTIDINE 20 MG TAB PO SCH ×2 (10:06→21:11)
[2017-01-10] MEDS: ASPIRIN EC 325 MG TABEC PO SCH (10:06)
[2017-01-10 10:07] LABS: HDL CHOLESTEROL 55.5 MG/DL (40.0-60.0)
[2017-01-10 14:30] LABS: ANA SCREEN NEG (NEG)
[2017-01-10 16:59] LABS: HEMOGLOBIN A1a 1.4 %; HEMOGLOBIN A1b 1.8 %; HEMOGLOBIN Ao 85.4 %; HEMOGLOBIN LA1C 1.6 %; HEMOGLOBIN P3 3.8 %
[2017-01-10] MEDS ORDERED: ASPI81CH CHEW (19:25)
[2017-01-10] MEDS ORDERED: PLAV75TA29 PO (19:25)
--- NOTE | 2017-01-10 19:30 | HHI.PR ---
Subjective Remarks Patient seen this morning around 11 AM. Says he is feeling better. Right- sided weakness appears to have resolved. Denies any chest pain or shortness of breath. Objective Vital Signs Date Time Temp Pulse Resp B/P (MAP) Pulse Ox O2 Delivery O2 Flow Rate FiO2 01/10/17 19:08 98.2 81 18 119/86 (97) 97 01/10/17 15:37 97.9 83 20 117/70 (86) 97 01/10/17 11:23 98.0 85 20 118/69 (85) 95 01/10/17 07:32 70 01/10/17 07:27 97.8 63 19 108/70 (83) 97 01/10/17 04:44 98.4 60 18 121/74 (90) 97 01/10/17 04:23 53 01/09/17 20:06 98.4 58 18 115/62 (79) 97 01/09/17 20:00 96 01/09/17 19:57 97.9 85 18 118/68 (85) 98 I/O 01/09/17 01/09/17 01/09/17 01/10/17 01/10/17 01/10/17 07:00 15:00 23:00 07:00 15:00 23:00 Intake Total 500 ml Balance 500 ml Intake IV Total 500 ml # Voids 1 Result Diagram: 01/10/17 0902 01/10/17 0902 Imaging Last Impressions Chest X-Ray 01/09/17 0640 Signed Impressions: Service Date/Time: Monday, January 09, 2017 06:44 - CONCLUSION: Suspected minimal atelectasis. Tae Lutz MD Neck Magnetic Resonance Angiography 01/09/17 0000 Signed Impressions: Service Date/Time: Monday, January 09, 2017 13:25 - CONCLUSION: 1. No significant carotid flow-limiting stenosis. 2. Slightly asymmetric vertebral arteries with dominant right vertebral artery. Approximately 50-60%% focal stenosis of the proximal left vertebral artery. Keagan Leyva MD Head Magnetic Resonance Angiography 01/09/17 0000 Signed Impressions: Service Date/Time: Monday, January 09, 2017 10:41 - CONCLUSION: Normal examination. Tae Lutz MD Head CT 01/09/17 0000 Signed Impressions: Service Date/Time: Monday, January 09, 2017 06:50 - CONCLUSION: 1. 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 Benign- appearing sub-centimeters calcification in the right condon radiata. 2. Expansile lesion in the right maxillary antrum with calcification. While this may represent chronic sinusitis with a fungal component, a mass lesion cannot be excluded. Outpatient MRI with contrast could be performed for further characterization. Kameron Lu MD Brain MRI 01/09/17 0000 Signed Impressions: Service Date/Time: Monday, January 09, 2017 10:41 - CONCLUSION: 1. No acute intracranial abnormality seen. 2. Old lacunar infarcts in the left and a suspected smaller than subluxation at the inferior right temporal lobe. 3. Opacification of the right maxillary sinus and left sphenoid sinus. Tae Lutz MD Objective Remarks GENERAL: patient sitting up in bed. Appears comfortable. Alert and oriented 3. SKIN: Warm and dry. HEAD: Normocephalic. EYES: No scleral icterus. No injection or drainage. NECK: Supple, trachea midline. No JVD or lymphadenopathy. CARDIOVASCULAR: Regular rate and rhythm without murmurs, gallops, or rubs. RESPIRATORY: Breath sounds equal bilaterally. No accessory muscle use. GASTROINTESTINAL: Abdomen soft, non-tender, nondistended. MUSCULOSKELETAL: No cyanosis, or edema. BACK: Nontender without obvious deformity. No CVA tenderness. A/P Assessment and Plan ===== 01/10/17 //right-sided weakness.Appears to have resolution of symptoms. LDL 44, B12 1160. Thiamine pending. Echocardiogram still pending. Holter ordered. Cynthia discharge per neurology if echocardiogram returned as negative. Appreciate neurology assistance. //Sinus opacification. As seen on MRI. Likely chronic. Patient without any sinus complaints. Follow-up with primary care. 81-year-old male with past medical history of CVA, HLD, hypothyroidism, GERD who presented for rightsided neuro symptoms Right-sided neuro symptoms 2 days: Possible CVA. Reviewed: Head CT shows chronic changes with an old lacunar infarct in the left thalamus; lesion in the right maxillary antrum. -Stroke workup; neuro checks, swallow eval, Accu checks, telemetry monitoring, stroke scale -Check brain MRI, MRA, carotid ultrasound, echocardiogram -Consult neurology -Continue aspirin and statin -PT/OT -IVF Atypical chest pain: Reviewed: EKG with NSR, no ischemic changes. Initial troponin within normal limits. -Continue to trend cardiac enzymes and EKGs Sinus lesion: No sinus symptoms. Incidentally seen on head CT. -Check brain MRI with contrast Elevated bilirubin: Bilirubin 1.7. -Monitor LFTs and check bilirubin component GERD: Continue Zantac Hypothyroidism: Check TSH. Continue levothyroxine. DVT prophylaxis: Lovenox, SCDs Discharge Planning ultrasound negative for thrombus. Holter should be on, patient will need to return. Nick Jones MD Jan 10, 2017 19:30
[2017-01-10] MEDS: ATORVASTATIN 20 MG TAB PO SCH (21:10)
[2017-01-11] VITALS (8 sets, daily range): BP systolic 105–136; BP diastolic 64–81; PULSE 60–106; RESP 18–20; TEMP 97.5–98.4; O2SAT 95–99
[2017-01-11] MEDS: LEVOTHYROXINE SODIUM 125 MCG TAB PO SCH (05:40)
[2017-01-11] MEDS: INSULIN ASPART SUPPLEMENTAL SCALE SQ SCH ×2 (08:00→12:00)
[2017-01-11] MEDS: FAMOTIDINE 20 MG TAB PO SCH (08:29)
[2017-01-11] MEDS: CLOPIDOGREL 75 MG TAB PO SCH (08:29)
[2017-01-11] MEDS: ENOXAPARIN SODIUM 40 MG/0.4 ML SYRINGE SQ SCH (08:29)
[2017-01-11] MEDS: ASPIRIN EC 325 MG TABEC PO SCH (08:30)
[2017-01-11] MEDS: SODIUM CHLORIDE 0.9% FLUSH 5 ML FLUSH IV FLUSH SCH (09:00)
--- NOTE | 2017-01-11 14:00 | HHI.PR ---
Subjective Remarks Patient seen this morning around 10 AM. Says he is feeling well. Denies any chest pain or shortness breath. Walking around without difficulty. Echo still not done. Discussed with nurse. Objective Vital Signs Date Time Temp Pulse Resp B/P (MAP) Pulse Ox O2 Delivery O2 Flow Rate FiO2 01/11/17 11:04 97.5 88 20 123/81 (95) 97 01/11/17 07:10 68 01/11/17 07:04 97.8 67 19 117/74 (88) 95 01/11/17 05:10 98.4 60 18 107/65 (79) 96 01/11/17 00:38 98.0 69 18 105/64 (78) 99 01/10/17 23:00 65 01/10/17 19:08 98.2 81 18 119/86 (97) 97 01/10/17 15:37 97.9 83 20 117/70 (86) 97 I/O 01/10/17 01/10/17 01/10/17 01/11/17 01/11/17 01/11/17 07:00 15:00 23:00 07:00 15:00 23:00 # Voids 1 Result Diagram: 01/10/17 0902 01/10/17 0902 Objective Remarks GENERAL: patient came around room.. Appears comfortable. Alert and oriented 3. SKIN: Warm and dry. HEAD: Normocephalic. EYES: No scleral icterus. No injection or drainage. NECK: Supple, trachea midline. No JVD. CARDIOVASCULAR: Regular rate and rhythm without murmurs, gallops, or rubs. RESPIRATORY: Breath sounds equal bilaterally. No accessory muscle use. GASTROINTESTINAL: Abdomen soft, non-tender, nondistended. MUSCULOSKELETAL: No cyanosis, or edema. BACK: Nontender without obvious deformity. No CVA tenderness. A/P Assessment and Plan ===== 01/11/17 //right-sided weakness.Appears to have resolution of symptoms. LDL 44, B12 1160. Thiamine pending. Echocardiogram still pending. Holter on. Can discharge after echocardiogram resulted. //Sinus opacification. As seen on MRI. Likely chronic. Patient without any sinus complaints. Follow-up with primary care. 81-year-old male with past medical history of CVA, HLD, hypothyroidism, GERD who presented for rightsided neuro symptoms Right-sided neuro symptoms 2 days: Possible CVA. Reviewed: Head CT shows chronic changes with an old lacunar infarct in the left thalamus; lesion in the right maxillary antrum. -Stroke workup; neuro checks, swallow eval, Accu checks, telemetry monitoring, stroke scale -Check brain MRI, MRA, carotid ultrasound, echocardiogram -Consult neurology -Continue aspirin and statin -PT/OT -IVF Atypical chest pain: Reviewed: EKG with NSR, no ischemic changes. Initial troponin within normal limits. -Continue to trend cardiac enzymes and EKGs Sinus lesion: No sinus symptoms. Incidentally seen on head CT. -Check brain MRI with contrast Elevated bilirubin: Bilirubin 1.7. -Monitor LFTs and check bilirubin component GERD: Continue Zantac Hypothyroidism: Check TSH. Continue levothyroxine. DVT prophylaxis: Lovenox, SCDs Discharge Planning She can be discharged if echocardiogram negative for thrombus. Holter to be returned. Nick Jones MD Jan 11, 2017 14:00
--- NOTE | 2017-01-11 16:06 | ECHRPT ---
Indication: CONCLUSIONS Normal left ventricular size. Wall thickness is normal. The left ventricular systolic function is hyperdynamic with an estimated ejection fraction in the ra nge of 65- 70%. Doppler parameters are consistent with impaired left ventricular relaxtion (grade 1 diastolic dysfun ction). The right atrial size is mildly dilated. The interatrial septum not well visualized. The aortic root and proximal ascending aorta are not well visualized. Mild mitral valve regurgitation. Aortic valve sclerosis is present. No aortic valve regurgitation. No aortic valve stenosis. There is trace tricuspid valve regurgitation. Normal estimated pulmonary pressures. The pulmonary valve is not well visualized. The inferior vena cava was not well visualized. BP: 121 / 74 HR: 85 Rhythm: Sinus MEASUREMENTS (Male / Female) Normal Values Technical Quality:Fair 2D ECHO LV Diastolic Diameter PLAX 5.0 cm 4.2 - 5.9 / 3.9 - 5.3 cm LV Systolic Diameter PLAX 3.4 cm IVS Diastolic Thickness 0.9 cm 0.6 - 1.0 / 0.6 - 0.9 cm LVPW Diastolic Thickness 0.9 cm 0.6 - 1.0 / 0.6 - 0.9 cm LV Relative Wall Thickness 0.4 LVOT Diameter 2.4 cm Aortic Root Diameter 3.4 cm LA Systolic Diameter LX 2.9 cm 3.0 - 4.0 / 2.7 - 3.8 cm M-MODE AV Cusp Separation MM 2.1 cm DOPPLER AV Peak Velocity 108.0 cm/s AV Peak Gradient 4.7 mmHg AV Mean Gradient 2.0 mmHg AV Velocity Time Integral 16.3 cm LVOT Peak Velocity 62.4 cm/s LVOT Peak Gradient 1.6 mmHg LVOT Velocity Time Integral 9.3 cm AV Area Cont Eq vti 2.6 cm AV Area Cont Eq pk 2.6 cm Mitral E Point Velocity 47.9 cm/s Mitral A Point Velocity 76.5 cm/s Mitral E to A Ratio 0.6 LV E' Lateral Velocity 10.5 cm/s Mitral E to LV E' Lateral Ratio 4.6 LV E' Septal Velocity 11.5 cm/s Mitral E to LV E' Septal Ratio 4.2 TR Peak Velocity 250.0 cm/s TR Peak Gradient 25.0 mmHg FINDINGS LEFT VENTRICLE Normal left ventricular size. Wall thickness is normal. The left ventricular systolic function is hyperdynamic with an estimated ejection fraction in the ra nge of 65- 70%. Doppler parameters are consistent with impaired left ventricular relaxtion (grade 1 diastolic dysfun ction). RIGHT VENTRICLE Normal right ventricular size and systolic function. LEFT ATRIUM The left atrial size is normal. RIGHT ATRIUM The right atrial size is mildly dilated. ATRIAL SEPTUM The interatrial septum not well visualized. AORTA The aortic root and proximal ascending aorta are not well visualized. MITRAL VALVE Structurally normal mitral valve. Mild mitral valve regurgitation. AORTIC VALVE Aortic valve sclerosis is present. No aortic valve regurgitation. No aortic valve stenosis. TRICUSPID VALVE There is trace tricuspid valve regurgitation. Normal estimated pulmonary pressures. PULMONARY VALVE The pulmonary valve is not well visualized. VESSELS The inferior vena cava was not well visualized. PERICARDIUM No pericardial effusion. Memo Martin MD (Electronically Signed) Final Date:11 January 2017 16:05
--- NOTE | 2017-01-12 21:12 | HM ---
Date Performed: 01/10/2017 Time Performed: 14:18:00 HOOKUP DATE: 01/10/17 02:18:00 PM Mon ANALYSIS START TIME: 01/10/2017 2:23:00 PM ANALYSIS END TIME: 01/11/2017 2:02:17 PM PATIENT AGE: 81 PATIENT HEIGHT PATIENT WEIGHT DRUG LIST PATIENT DIAGNOSIS TEST NARRATIVE: The patient's average heart rate was 77 BPM. Heart rates greater than 120 B PM were noted < 1% of the time. No episodes of bradycardia were noted. No pauses exceeding 2.0 s econds were noted. 591 ventricular ectopics, which represented 1% of the total beat count, were n oted. The highest ventricular ectopic frequency occurred from 06:00 PM to 07:00 PM Mon. During this time 60 VE(s) occurred. Ventricular ectopics were observed as 584 isolated beat(s) and as 2 run(s). No supraventricular ectopics were noted. No episodes of ST depression (defined as -1.0 mm or more) were noted in channel 1. No episodes of ST depression (defined as -1.0 mm or more) were noted in channel 2. No episodes of ST depression (defined as -1.0 mm or more) were noted in channel 3. no symptoms reported in diary TEST INTERPRETATION: 1. predominant underlying rhythm is sinus with a heart rate in average of 7 7 beats per minute 2. no significant tachy or Tan arrhythmias noted 3. rare premature atrial compl exes and rare premature ventricular complexes were noted 4. No pauses of greater than 3 seconds noted 5. no cardiac symptoms noted during the recorded time interval Signed by : Josué Haskins
== END 2017-01-11 17:15 | disposition home or self-care (01) | DRG 69 ==
LOC: NEPE 06:19 → NEDA 08:27 → NEPHCDU 09:48 → OBSVTOIN 13:59
PROVIDERS: ADMIT Internal Medicine; ATTEND Internal Medicine
DX: G45.9 Transient cerebral ischemic attack, unspecified (principal); R17 Unspecified jaundice; R07.89 Other chest pain; E03.9 Hypothyroidism, unspecified; K21.9 Gastro-esophageal reflux disease without esophagitis; E78.5 Hyperlipidemia, unspecified; Z85.46 Personal history of malignant neoplasm of prostate; Z86.73 Personal history of transient ischemic attack (TIA), and cerebral infarction without residual deficits
CPT/HCPCS: 70450; 70544; 70548; 70553; 71010; 80048; 80053; 80061; 82248; 82550; 82552; 82607; 82746; 82948; 83036; 83735; 84425; 84443; 84484; 85025; 85610; 85652; 85730; 86038; 86592; 93005; 93225; 93226; 93306; 96360; A9579; J1650; J7030; J7040

== ENCOUNTER → 2017-02-14 | Outpatient (CLI) | payer MEDICARE ==
[~2017-02-14] MED LIST changes: +ASPI81CH CHEW; -LEVO.125 PO; +LEVO125T4 PO; +LIPI20TA PO; -NEXI40CA PO; +PLAV75TA29 PO; +ZANT300T PO
[2017-02-14 13:25] LABS: HEMATOCRIT 41.5 % (39.0-51.0); MEAN CORPUSCULAR HEMOGLOBIN 29.2 PG (27.0-34.0); MEAN CORPUSCULAR HGB CONC 33.9 % (32.0-36.0); PLATELET COUNT 231 TH/MM3 (150-450); RED BLOOD COUNT 4.83 MIL/MM3 (4.50-5.90); RED CELL DISTRIBUTION WIDTH 14.5 % (11.6-17.2); REVIEW FLAG FINAL; WHITE BLOOD COUNT 5.2 TH/MM3 (4.0-11.0)
[2017-02-14 13:36] LABS: ANION GAP 8 MEQ/L (5-15); AST (GOT) 31 U/L (15-37); BICARBONATE 27.5 MEQ/L (21.0-32.0); BLOOD UREA NITROGEN 16 MG/DL (7-18); CHLORIDE 106 MEQ/L (98-107); GLOMERULAR FILTRATION RATE 62 ML/MIN (>89); GLUCOSE,FASTING 87 MG/DL (74-99); POTASSIUM 4.2 MEQ/L (3.5-5.1); SODIUM (NA) 141 MEQ/L (136-145)
[2017-02-14 14:03] LABS: ALKALINE PHOSPHATASE 145 U/L (45-117); ALT (GPT) 48 U/L (12-78); FREE T4 1.01 NG/DL (0.76-1.46); HDL CHOLESTEROL 66.6 MG/DL (40.0-60.0); LDL CHOLESTEROL 45 MG/DL (0-99); LDL CHOLESTEROL DIRECT 69 MG/DL (0-99); TOTAL BILIRUBIN ADULT 1.5 MG/DL (0.2-1.0)
== END ==
LOC: PLAB 08:02
PROVIDERS: ATTEND Family Medicine
DX: E78.2 Mixed hyperlipidemia (principal); E03.8 Other specified hypothyroidism; I67.9 Cerebrovascular disease, unspecified; E53.8 Deficiency of other specified B group vitamins
CPT/HCPCS: 36415; 80053; 80061; 82607; 83721; 84439; 84443; 85027

== ENCOUNTER → 2017-07-26 | Outpatient (CLI) | payer MEDICARE ==
[~2017-07-26] MED LIST changes: +ASPI-516 CHEW; -ASPI81CH CHEW
[2017-07-26 10:27] LABS: HEMATOCRIT 39.1 % (39.0-51.0); HEMOGLOBIN 13.4 GM/DL (13.0-17.0); MEAN CELL VOLUME 83.3 FL (80.0-100.0); MEAN CORPUSCULAR HEMOGLOBIN 28.6 PG (27.0-34.0); MEAN CORPUSCULAR HGB CONC 34.3 % (32.0-36.0); MEAN PLATELET VOLUME 8.6 FL (7.0-11.0); PLATELET COUNT 264 TH/MM3 (150-450); RED BLOOD COUNT 4.69 MIL/MM3 (4.50-5.90); RED CELL DISTRIBUTION WIDTH 14.1 % (11.6-17.2); WHITE BLOOD COUNT 4.6 TH/MM3 (4.0-11.0)
[2017-07-26 10:36] LABS: ALBUMIN 3.6 GM/DL (3.4-5.0); BICARBONATE 26.3 MEQ/L (21.0-32.0); BLOOD UREA NITROGEN 25 MG/DL (7-18); CALCIUM 8.9 MG/DL (8.5-10.1); CHLORIDE 111 MEQ/L (98-107); CHOLESTEROL 120 MG/DL (120-200); CREATININE 1.27 MG/DL (0.60-1.30); GLOMERULAR FILTRATION RATE 55 ML/MIN (>89); GLUCOSE,FASTING 92 MG/DL (74-99); SODIUM (NA) 143 MEQ/L (136-145)
[2017-07-26 10:37] LABS: AST (GOT) 22 U/L (15-37); TRIGLYCERIDES 134 MG/DL (42-150)
[2017-07-26 11:04] LABS: ALKALINE PHOSPHATASE 150 U/L (45-117); ALT (GPT) 34 U/L (12-78); CHOLESTEROL/ HDL RATIO 2.48 RATIO; FREE T4 1.08 NG/DL (0.76-1.46); HDL CHOLESTEROL 48.3 MG/DL (40.0-60.0); LDL CHOLESTEROL 45 MG/DL (0-99); LDL CHOLESTEROL DIRECT 64 MG/DL (0-99); TOTAL BILIRUBIN ADULT 1.1 MG/DL (0.2-1.0); TOTAL PROTEIN 7.2 GM/DL (6.4-8.2)
== END ==
LOC: PLAB 07:26
PROVIDERS: ATTEND Family Medicine
DX: E78.2 Mixed hyperlipidemia (principal); I10 Essential (primary) hypertension; E03.8 Other specified hypothyroidism; I67.9 Cerebrovascular disease, unspecified; G45.9 Transient cerebral ischemic attack, unspecified
CPT/HCPCS: 36415; 80053; 80061; 82607; 83721; 84439; 84443; 85027